=== PATIENT | female | born 1960 | race Caucasian/White ===

== ENCOUNTER 2018-04-18 03:48 | Emergency (ER) | payer OTHER ==
[~2018-04-18] VITALS: Ht 154.9 cm; Wt 140.6 kg
[~2018-04-18 03:48] MED LIST: HYDROCHLOROTH12.5 M1 PO; HYDROXYZINE HCL25 M2 GT; IBUPROFEN 800800 M1 PO; MEDROLDOSEPACK PO; NOHOMEMEDICATIONS; TESSALON200 MG PO; ZPAK PO
[2018-04-18 04:29] LABS: HEMATOCRIT 45.4 % (37.0-47.0); HEMOGLOBIN 15.5 gm/dL (12.0-15.0); MCH 32.2 pg (26.0-34.0); MCV 94.6 fL (80.0-100.0); MPV 7.9 fl. (7.2-11.1); NUCLEATED RBCS 0 /100WBC; PLATELET COUNT* 281 thou/uL (150-400); RBC 4.81 mil/uL (4.20-5.00); RDW-CV 12.6 % (10.5-14.5); WBC 10.9 thou/uL (4.0-11.0)
[2018-04-18 04:38] LABS: ANION GAP 7 mmol/L (7-16); BUN 17 mg/dL (7-18); CALCIUM 8.2 mg/dL (8.5-10.1); CHLORIDE 105 mmol/L (98-107); CO2 26 mmol/L (21-32); CREATININE 0.9 mg/dL (0.6-1.3); GLUCOSE 150 mg/dL (70-99); POTASSIUM 4.4 mmol/L (3.5-5.1); SODIUM 138 mmol/L (136-145)
[2018-04-18 04:44] LABS: ALKALINE PHOSPHATASE 143 U/L (46-116); LIPASE 172 U/L (73-393); SGOT 46 U/L (15-37); SGPT 57 U/L (30-65); TOTAL BILIRUBIN 0.5 mg/dL (<0.1-1.0); TOTAL PROTEIN 6.9 g/dL (6.4-8.2); TROPONIN-I LEVEL <0.06 ng/mL (<0.06)
[2018-04-18 05:49] LABS: ABSOLUTE LYMPHOCYTES 0.2 thou/uL (0.8-5.3); ABSOLUTE MONOCYTES 0.1 thou/uL (0.0-1.2); ABSOLUTE NEUTROPHILS 10.6 thou/uL (1.6-8.1); ANISOCYTOSIS 1+; PLATELET ESTIMATE ADEQUATE; POIKILOCYTOSIS 1+
[2018-04-18] MEDS ORDERED: ZOFRAN ODT4 MG PO (06:09)
[2018-04-18] MEDS ORDERED: PROTONIX40 MG PO (06:09)
[2018-04-18 06:20] VITALS: BP 128/72
--- NOTE | 2018-04-18 15:36 | EKG ---
[place] [address] ELECTROCARDIOGRAM REPORT Name: MELISSAANIRUDH Vi Room: [facility]#: [id number] Admission: 04/18/18 Attend Phys: Discharge: 04/18/18 Date of : 64 Report #: [id number] THIS REPORT FOR: //name// [facility] ED Test Date: 2018-04-18 Test Time: 04:00:21 Pat Name: ANIRUDH TORRES Department: Room: Gender: F Applied Psychology Chair: BRIANA : 1960 Requested By: Deana Bobo Order Number: [id number] MD: Juanito Moss Measurements Intervals [place] Rate: 105 P: 60 WA: 139 QRS: 55 QRSD: 95 T: 59 QT: 341 QTc: 451 Interpretive Statements Sinus tachycardia septal q waves Low voltage, precordial leads Compared to ECG 03/14/2017 22:18:03 Low QRS voltage now present Sinus rhythm no longer present Electronically Signed On 04-18-2018 15:36:[address] [employer] by Juanito Moss [email or web address] <ELECTRONICALLY SIGNED> By: Juanito Moss MD, [facility] 04/18/18 1536 0400 0400 Juanito Moss MD, [facility] /EPI
== END 2018-04-18 06:20 | disposition home or self-care (01) ==
LOC: M.ERS 03:48
PROVIDERS: Emergency Medicine
DX: R11.2 Nausea with vomiting, unspecified (principal); R10.13 Epigastric pain; F17.210 Nicotine dependence, cigarettes, uncomplicated; Z90.89 Acquired absence of other organs; Z98.890 Other specified postprocedural states

== ENCOUNTER 2018-10-05 09:20 | Emergency (ER) | payer OTHER ==
[~2018-10-05] VITALS: Ht 154.9 cm; Wt 98.2 kg
[~2018-10-05 09:20] MED LIST changes: +PROTONIX40 MG PO; +ZOFRAN ODT4 MG PO
[2018-10-05 09:52] LABS: HEMATOCRIT 43.8 % (37.0-47.0); MCH 31.8 pg (26.0-34.0); MCHC 34.2 g/dL (28.0-37.0); MPV 8.5 fl. (7.2-11.1); NUCLEATED RBCS 0 /100WBC; PLATELET COUNT* 265 thou/uL (150-400); RBC 4.71 mil/uL (4.20-5.00); RDW-CV 12.4 % (10.5-14.5); WBC 16.3 thou/uL (4.0-11.0)
[2018-10-05 09:59] LABS: CALCIUM 8.6 mg/dL (8.5-10.1); CREATININE 1.1 mg/dL (0.6-1.3)
[2018-10-05 10:04] LABS: ALBUMIN 3.1 g/dL (3.4-5.0); MAGNESIUM 1.6 mg/dL (1.8-2.4); TOTAL BILIRUBIN 0.6 mg/dL (<0.1-1.0); TOTAL PROTEIN 7.3 g/dL (6.4-8.2)
[2018-10-05 10:15] LABS: ABSOLUTE EOSINOPHILS 0.2 thou/uL (0.0-0.7); ABSOLUTE LYMPHOCYTES 1.6 thou/uL (0.8-5.3); ABSOLUTE MONOCYTES 0.7 thou/uL (0.0-1.2); ABSOLUTE NEUTROPHILS 13.9 thou/uL (1.6-8.1); PLATELET ESTIMATE ADEQUATE
[2018-10-05 10:40] LABS: BE -1.1 mmol/L (-2 to +3); PCO2 34.6 mmHg (35.0-45.0); pH 7.431 (7.340-7.450)
[2018-10-05 10:42] LABS: PO2 54.7 mmHg (75.0-100.0)
[2018-10-05 12:34] LABS: URINE BILIRUBIN NEGATIVE (Negative); URINE BLOOD TRACE (Negative); URINE CLARITY CLEAR; URINE COLOR YELLOW; URINE GLUCOSE-RANDOM NEGATIVE (Negative); URINE KETONES NEGATIVE (Negative); URINE LEUKOCYTES-REFLEX NEGATIVE (Negative); URINE PROTEIN NEGATIVE (Negative); URINE UROBILINOGEN 0.2 E.U./dl (0.2-1.0)
[2018-10-05 12:41] LABS: URINE NITRITE-REFLEX POSITIVE (Negative)
[2018-10-05 12:43] LABS: AMP/METHAMP POSITIVE (Negative); BARBITURATES Negative (Negative); BENZODIAZEPINES Negative (Negative); COCAINE Negative (Negative); METHADONE Negative (Negative); OPIATES Negative (Negative); PCP Negative (Negative); THC Negative (Negative)
[2018-10-05] MEDS ORDERED: CIPROFLOXACIN500 M1 PO (12:43)
[2018-10-05 12:44] LABS: SQUAMOUS 4-10 Moderate /LPF (0-3); URINE WBC-REFLEX 0-5 Rare /HPF (0-5)
[2018-10-05 12:45] LABS: BACTERIA-REFLEX >30 Many /HPF (None Seen); CASTS None Seen /LPF (None Seen); CRYSTALS None Seen /LPF (None Seen); MUCUS 0-3 Light strn/LPF (None Seen); URINE RBC 0-2 Rare /HPF (0-2)
[2018-10-05 13:57] VITALS: BP 163/85
== END 2018-10-05 13:57 | disposition home or self-care (01) ==
LOC: M.ERS 09:20
PROVIDERS: Personal Emergency Response Attendant
DX: N39.0 Urinary tract infection, site not specified (principal); F17.210 Nicotine dependence, cigarettes, uncomplicated; Z98.890 Other specified postprocedural states